=== PATIENT | male | born 1995 | race Caucasian/White ===

== ENCOUNTER 2016-10-23 23:48 | Emergency (ER) | payer BC, OTHER ==
[2016-10-23 23:51] VITALS: BP 170/105; PULSE 87; RESP 18; TEMP 98.5; O2SAT 96
--- NOTE | 2016-10-23 23:57 | PD ---
HPI Chief Complaint: PSYCH Time Seen by Provider: 23:51 Travel History International Travel<30 days: No Contact w/Intl Traveler<30days: No History of Present Illness HPI PATIENT CONTACTED CRISIS LINE BECAUSE HE WAS HAVING SUICIDAL IDEATIONS, POLICE RUDY ACTED PATIENT AND BROUGHT TO ED FOR CLEARANCE, PER PT HE DENIES TAKING OR OVERDOSING ON ANYTHING, HE DECIDED TO REACH OUT BEFORE DOING SOMETHING "STUPID" PFSH Past Medical History Asthma: Yes (SEASONAL) Autoimmune Disease: No Anxiety: Yes Depression: Yes Cancer: No Cardiovascular Problems: No Developmental Delay: No Diminished Hearing: No Endocrine: No Genitourinary: No Immune Disorder: No Musculoskeletal: No Neurologic: No Psychiatric: Yes (DR SIMENTAL OUTPATIENT) Reproductive: No Respiratory: Yes Immunizations Current: Yes Past Surgical History Other Surgery: No Social History Alcohol Use: Yes Tobacco Use: Yes (DAILY) Substance Use: Yes (ETOH) Allergies-Medications (Allergen,Severity, Reaction): Coded Allergies: Penicillin (Verified Allergy, Unknown, Itching, 10/23/16) Reported Meds & Prescriptions Reported Meds & Active Scripts Active No Active Prescriptions or Reported Medications Review of Systems Except as stated in HPI: all other systems reviewed are Neg Psychiatric: Positive: Suicidal Ideations Physical Exam Narrative GENERAL: SKIN: Warm and dry. HEAD: Atraumatic. Normocephalic. EYES: Pupils equal and round. No scleral icterus. No injection or drainage. ENT: No nasal bleeding or discharge. Mucous membranes pink and moist. NECK: Trachea midline. No JVD. CARDIOVASCULAR: Regular rate and rhythm. RESPIRATORY: No accessory muscle use. Clear to auscultation. Breath sounds equal bilaterally. GASTROINTESTINAL: Abdomen soft, non-tender, nondistended. Hepatic and splenic margins not palpable. MUSCULOSKELETAL: Extremities without clubbing, cyanosis, or edema. No obvious deformities. NEUROLOGICAL: Awake and alert. No obvious cranial nerve deficits. Motor grossly within normal limits. Five out of 5 muscle strength in the arms and legs. Normal speech. PSYCHIATRIC: Appropriate mood and affect; insight and judgment normal. Data Data Last Documented VS Vital Signs Date Time Temp Pulse Resp B/P Pulse Ox O2 Delivery O2 Flow Rate FiO2 10/24/16 10:38 66 16 143/74 99 10/24/16 07:30 Room Air 10/23/16 23:51 98.5 Orders Complete Blood Count With Diff (10/23/16 23:51) Comprehensive Metabolic Panel (10/23/16 23:51) Psych Screen (10/23/16 23:51) Drug Screen, Random Urine (10/23/16 23:51) Alcohol (Ethanol) (10/23/16 23:51) Salicylates (Aspirin) (10/23/16 23:51) Tylenol (Acetaminophen) (10/23/16 23:51) Diet Regular Basic (10/24/16 Breakfast) Labs Laboratory Tests Test 10/24/16 00:10 White Blood Count 10.2 TH/MM3 Red Blood Count 5.13 MIL/MM3 Hemoglobin 16.4 GM/DL Hematocrit 47.9 % Mean Corpuscular Volume 93.3 FL Mean Corpuscular Hemoglobin 32.0 PG Mean Corpuscular Hemoglobin 34.3 % Concent Red Cell Distribution Width 12.8 % Platelet Count 260 TH/MM3 Mean Platelet Volume 7.0 FL Neutrophils (%) (Auto) 67.9 % Lymphocytes (%) (Auto) 21.4 % Monocytes (%) (Auto) 8.8 % Eosinophils (%) (Auto) 1.3 % Basophils (%) (Auto) 0.6 % Neutrophils # (Auto) 6.9 TH/MM3 Lymphocytes # (Auto) 2.2 TH/MM3 Monocytes # (Auto) 0.9 TH/MM3 Eosinophils # (Auto) 0.1 TH/MM3 Basophils # (Auto) 0.1 TH/MM3 CBC Comment DIFF FINAL Differential Comment Sodium Level 136 MEQ/L Potassium Level 3.9 MEQ/L Chloride Level 100 MEQ/L Carbon Dioxide Level 23.5 MEQ/L Anion Gap 13 MEQ/L Blood Urea Nitrogen 6 MG/DL Creatinine 0.77 MG/DL Estimat Glomerular Filtration 128 ML/MIN Rate Random Glucose 92 MG/DL Calcium Level 9.4 MG/DL Total Bilirubin 0.4 MG/DL Aspartate Amino Transf 208 U/L (AST/SGOT) Alanine Aminotransferase 351 U/L (ALT/SGPT) Alkaline Phosphatase 116 U/L Total Protein 8.9 GM/DL Albumin 4.5 GM/DL Salicylates Level LESS THAN 1.7 MG/DL Urine Opiates Screen NEG Acetaminophen Level LESS THAN 2.0 MCG/ML Urine Barbiturates Screen NEG Urine Amphetamines Screen NEG Urine Benzodiazepines Screen POS Urine Cocaine Screen NEG Urine Cannabinoids Screen POS Ethyl Alcohol Level 287 MG/DL MDM Medical Decision Making Medical Screen Exam Complete: Yes Emergency Medical Condition: Yes Medical Record Reviewed: Yes Differential Diagnosis MED CLEARANCE INCLUDING ELECTROLYTE ABNL, DRUG SCREEN, ETOH SCREEN, Narrative Course PATIENT ONLY WANTS PSYCHIATRIC HELP, DID NOT OVERDOSE OR CUT HIMSELF THIS TIME. MEDICAL CLEARANCE WILL BE ORDERED IF ALL WNL THEN MED CLEARED FOR PSYCH...BASED ON PATIENT HISTORY REVIEW PATIENT HAS HAD MILD ELEV OF LFT'S WHICH IS MOSTLY ATTRIBUTABLE TO ETOH AND FATTY LIVER PER PATIENT, TODAY LFT'S ARE MILDLY ELEVATED AGAIN BUT NOT SHOWING SIGNS OF OBSTRUCTION... POLYSUBSTANCE INCLUDED MARIJUANA, ALCOHOL AND BENZO'S. Diagnosis Primary Impression: Suicidal ideation Additional Impressions: POLYSUBSTANCE USE GRANT ACT MEDICALLY CLEARED Scripts No Active Prescriptions or Reported Meds Condition: Stable Duglas Gibson MD Oct 23, 2016 23:57
[2016-10-24 00:18] LABS: AUTOMATED NEUTROPHIL # 6.9 TH/MM3 (1.8-7.7); BASOPHIL # 0.1 TH/MM3 (0-0.2); BASOPHIL % 0.6 % (0.0-2.0); EOSINOPHIL # 0.1 TH/MM3 (0-0.4); EOSINOPHIL % 1.3 % (0.0-4.0); HEMATOCRIT 47.9 % (39.0-51.0); HEMO FLAGS DIFF FINAL; LYMPH % 21.4 % (9.0-44.0); LYMPHOCYTE # 2.2 TH/MM3 (1.0-4.8); MEAN CELL VOLUME 93.3 FL (80.0-100.0); MEAN CORPUSCULAR HGB CONC 34.3 % (32.0-36.0); MONO % 8.8 % (0.0-8.0); NEUT % 67.9 % (16.0-70.0); PLATELET COUNT 260 TH/MM3 (150-450); RED BLOOD COUNT 5.13 MIL/MM3 (4.50-5.90); RED CELL DISTRIBUTION WIDTH 12.8 % (11.6-17.2); WHITE BLOOD COUNT 10.2 TH/MM3 (4.0-11.0)
[2016-10-24 00:29] LABS: AMPHETAMINE, URINE NEG (NEG); BARBITURATES, URINE NEG (NEG); COCAINE, URINE NEG (NEG)
[2016-10-24 00:52] LABS: ALKALINE PHOSPHATASE 116 U/L (45-117); TOTAL BILIRUBIN ADULT 0.4 MG/DL (0.2-1.0)
[2016-10-24 01:07] LABS: ALT (GPT) 351 U/L (12-78); ANION GAP 13 MEQ/L (5-15); AST (GOT) 208 U/L (15-37); BICARBONATE 23.5 MEQ/L (21.0-32.0); BLOOD UREA NITROGEN 6 MG/DL (7-18); CHLORIDE 100 MEQ/L (98-107); GLOMERULAR FILTRATION RATE 128 ML/MIN (>89); POTASSIUM 3.9 MEQ/L (3.5-5.1); SODIUM (NA) 136 MEQ/L (136-145)
[2016-10-24 01:10] LABS: ACETAMINOPHEN LESS THAN 2.0 MCG/ML (10.0-30.0)
[2016-10-24 07:30] VITALS: BP 147/79; PULSE 76; RESP 16; O2SAT 97
[2016-10-24 10:38] VITALS: BP 143/74
--- NOTE | 2016-10-24 10:52 | PD ---
History of Present Illness Chief Complaint: Psychiatric Symptoms Time Seen by Provider: 10:00 Travel History International Travel<30 Days: No Contact w/Intl Traveler<30days: No Known affected area: No Legal Status Legal Status: Soriano Act Soriano Act Signed By: History of Present Illness: 21-year-old male who got admitted under a Soriano act for making suicidal threats. Apparently he got into an argument with his girlfriend and called a crisis hotline. He reportedly told them he felt like cutting his wrist due to personal issues. He has to be taken to the hospital because he felt he would otherwise harm himself. At the present time, the patient is denying suicidal or homicidal ideation, plan or intent. He is admitting to making suicidal comments last night but states he would never actually harm himself. He also admits to getting into an argument with his girlfriend. (It was noted the patient's girlfriend called this morning, asking after him.) The patient is calm, pleasant and cooperative. He denies the use of illicit drugs or alcohol last night. His cognition is intact and he is verbally ana for safety. This physician feels he does not meet Soriano act criteria or inpatient psychiatric hospitalization. [facility] Past Medical History Asthma: Yes (SEASONAL) Autoimmune Disease: No Anxiety: Yes Depression: Yes Cancer: No Cardiovascular Problems: No Developmental Delay: No Diminished Hearing: No Endocrine: No Genitourinary: No Immune Disorder: No Musculoskeletal: No Neurologic: No Psychiatric: Yes (DR SIMENTAL OUTPATIENT) Reproductive: No Respiratory: Yes Immunizations Current: Yes Past Surgical History Surgical History: No Previous Surgery Other Surgery: No Psychiatric History Psychiatric History Hx Psychiatric Treatment: Pt admitted to [facility] [place] 06/05/14-06/08/14 Reports has outpatietn treatment with Dr. Peck History of Inpatient Treatment: Yes Social History Hx Alcohol Use: Yes Hx Tobacco Use: Yes (DAILY) Hx Substance Use: No Substance Use Type: Alcohol Other Substances Used: Admits to detox and rehab @ [facility] and [facility]. Hx of Substance Use Treatment: Yes Allergies-Medications (Allergen,Severity, Reaction): Coded Allergies: Penicillin (Verified Allergy, Unknown, Itching, 10/23/16) Reported Meds & Prescriptions Reported Meds & Active Scripts Active No Active Prescriptions or Reported Medications Review of Systems Except as stated in HPI: all other systems reviewed are Neg Exam Alert: Yes [place]: Person, Place, Date, Situation Mood: Calm Affect: Appropriate Speech: Clear, Logical Eye Contact: Normal Memory Intact: Immediate, Recent, Remote Insight/Judgement Adequate MDM Medical Decision Making Medical Record Reviewed: Yes Assessment/Plan 21-year-old male who made suicidal threats last night on a crisis hot line. Currently does not meet Soriano act criteria and does not meet criteria for inpatient psychiatric hospitalization, in my opinion. His cognition is intact and he is verbally ana for safety. No suicidal or homicidal ideation, plan or intent. No psychosis. Unfortunately, the patient has been noncompliant with treatment in the past, apparently started by Dr. Tommy simental. He was also hospitalized 2 years ago for the same issues. Patient was therefore encouraged to obtain outpatient psychiatric assistance. Orders Complete Blood Count With Diff (10/23/16 23:51) Comprehensive Metabolic Panel (10/23/16 23:51) Psych Screen (10/23/16 23:51) Drug Screen, Random Urine (10/23/16 23:51) Alcohol (Ethanol) (10/23/16 23:51) Salicylates (Aspirin) (10/23/16 23:51) Tylenol (Acetaminophen) (10/23/16 23:51) Diet Regular Basic (10/24/16 Breakfast) Results Vital Signs Date Time Temp Pulse Resp B/P Pulse Ox O2 Delivery O2 Flow Rate FiO2 10/24/16 10:38 66 16 143/74 99 10/24/16 07:30 76 16 147/79 97 Room Air 10/23/16 23:51 98.5 87 18 170/105 96 Laboratory Tests Test 10/24/16 00:10 White Blood Count 10.2 Red Blood Count 5.13 Hemoglobin 16.4 Hematocrit 47.9 Mean Corpuscular Volume 93.3 Mean Corpuscular Hemoglobin 32.0 Mean Corpuscular Hemoglobin 34.3 Concent Red Cell Distribution Width 12.8 Platelet Count 260 Mean Platelet Volume 7.0 Neutrophils (%) (Auto) 67.9 Lymphocytes (%) (Auto) 21.4 Monocytes (%) (Auto) 8.8 Eosinophils (%) (Auto) 1.3 Basophils (%) (Auto) 0.6 Neutrophils # (Auto) 6.9 Lymphocytes # (Auto) 2.2 Monocytes # (Auto) 0.9 Eosinophils # (Auto) 0.1 Basophils # (Auto) 0.1 CBC Comment DIFF FINAL Differential Comment Sodium Level 136 Potassium Level 3.9 Chloride Level 100 Carbon Dioxide Level 23.5 Anion Gap 13 Blood Urea Nitrogen 6 Creatinine 0.77 Estimat Glomerular Filtration 128 Rate Random Glucose 92 Calcium Level 9.4 Total Bilirubin 0.4 Aspartate Amino Transf 208 (AST/SGOT) Alanine Aminotransferase 351 (ALT/SGPT) Alkaline Phosphatase 116 Total Protein 8.9 Albumin 4.5 Salicylates Level LESS THAN 1.7 Urine Opiates Screen NEG Acetaminophen Level LESS THAN 2.0 Urine Barbiturates Screen NEG Urine Amphetamines Screen NEG Urine Benzodiazepines Screen POS Urine Cocaine Screen NEG Urine Cannabinoids Screen POS Ethyl Alcohol Level 287 Diagnosis Primary Impression: Adjustment disorder with mixed disturbance of emotions and conduct Additional Impression: Patient noncompliance Referrals: Abraham Evans DO (PCP) Departure Forms: Tests/Procedures Patient Instructions: General Instructions, Polysubstance Abuse (ED) Prescriptions No Active Prescriptions or Reported Meds Disposition: 01 DISCHARGE HOME Condition: Stable Problem Qualifiers Lg Preston MD Oct 24, 2016 10:51
== END 2016-10-24 10:40 | disposition home or self-care (01) ==
LOC: NEPD 23:48
DX: R45.851 Suicidal ideations (principal); F43.25 Adjustment disorder with mixed disturbance of emotions and conduct; F41.8 Other specified anxiety disorders; F12.90 Cannabis use, unspecified, uncomplicated; F19.90 Other psychoactive substance use, unspecified, uncomplicated; Z72.0 Tobacco use; Z91.19 Patient's noncompliance with other medical treatment and regimen; Z88.0 Allergy status to penicillin
CPT/HCPCS: 80053; 80307; 85025; 99284